=== PATIENT | male | born 1995 ===

== ENCOUNTER 2017-07-06 20:20 | Emergency (ER) | payer OTHER ==
[~2017-07-06] VITALS: Ht 182.9 cm; Wt 74.7 kg
[2017-07-06 20:38] VITALS: TEMP 36.8; Ht 182.9 cm; Wt 74.7 kg
[2017-07-06] MEDS ORDERED: IBUPROFEN 800 MG TAB PO STA (20:56)
[2017-07-06] MEDS ORDERED: CHOL2000 PO (21:19)
[2017-07-06] MEDS ORDERED: ZINC1TAB PO (21:19)
--- NOTE | 2017-07-06 22:01 | DIAGNOSTIC IMAGING REPORT ---
LUMBAR SPINE 5 VIEWS CLINICAL HISTORY: Low back pain. Soccer injury. FINDINGS: 5 views of the lumbar spine are obtained. No prior studies are available for comparison at the time of dictation. The skeletal structures are well mineralized. There is no radiographic evidence of fracture or malalignment. Vertebral body height and alignment are maintained. The transverse and spinous processes are intact. There is no evidence of spondylolysis. The intervertebral disc spaces are well-maintained. The visualized bony pelvis appears intact. There is a nonobstructed abdominal bowel gas pattern. IMPRESSION: Unremarkable radiographic evaluation of the lumbosacral spine. Electronically signed by: Esteban Rebollar M.D. 07/06/2017 9:59 PM Dictated Date/Time: 07/06/2017 9:58 PM
[2017-07-06] MEDS ORDERED: FLEXERIL HOME PACK 10 MG VIAL PO ONE (22:15)
[2017-07-06] MEDS ORDERED: CYCL10TA6 PO (22:17)
[2017-07-06 22:30] VITALS: BP 122/67; PULSE 78; O2SAT 99
--- NOTE | 2017-07-07 01:05 | EMERGENCY ROOM VISIT NOTE ---
History First contact with patient: 20:50 Chief Complaint: BACK PAIN Stated Complaint: BACK PAIN,FAINTNESS History of Present Illness The patient is a 22 year old male who presents to the Emergency Room with complaints of intermittent but persistent lower back pain after being injured while playing soccer 2 days ago. The patient reports that he was going for a block and fell onto his left side. Another teammate then fell on top of him. The patient reports feeling a pop in his lower back. He reports pain radiating into both buttocks and into the posterior thighs. He denies any pain radiating below the knees. He denies any bladder or bowel incontinence, saddle anesthesias or lower extremity weakness. The patient reports that his pain is worsened when sitting for long periods of time and heavy lifting. He denies any prior history of back injuries, and currently rates his discomfort a 9 out of 10. He has not taken any medicines for his pain. Review of Systems 10 system review was performed and was negative except for pertinent positives and negatives as indicated in history of present illness Past Medical/Surgical History Medical Problems: (1) No significant past medical history Surgical Problems: (1) No history of previous surgery Family History Unremarkable Social History Smoking Status: Never Smoker Alcohol Use: occasionally Marital Status: single Occupation Status: [employer] Current/Historical Medications Scheduled Cholecalciferol (Vitamin D3), 1 CAP PO DAILY Zinc Gluconate (Zinc), 1 TAB PO DAILY Scheduled PRN Cyclobenzaprine Hcl (Flexeril), 10 MG PO TID PRN for spasm Physical Exam Vital Signs Date Time Temp Pulse Resp B/P (MAP) Pulse Ox O2 Delivery O2 Flow Rate FiO2 07/06/17 22:30 78 122/67 99 07/06/17 20:38 36.8 97 18 136/66 97 Room Air Physical Exam CONSTITUTIONAL: Healthy and well nourished. Alert and oriented X 3 with positive affect. Patient appears in mild discomfort, and is laying supine on his back with his legs/hips flexed. HEENT: Normocephalic, atraumatic. Pupils equal, round and reactive. NECK: Full active range of motion without discomfort. RESPIRATORY: Clear to auscultation bilaterally with no wheezing, crackles, rhonchi or stridor. CARDIOVASCULAR: Regular rate and rhythm with no murmurs, rubs or gallops. GASTROINTESTINAL: Bowel sounds present in all quadrants. Soft and nontender to palpation. MUSCULOSKELETAL: Examination shows mild tenderness to palpation of bilateral lumbar paraspinous muscles and SI joints. Negative logroll. Negative straight leg raise bilaterally. Ankle plantar/dorsiflexion strength is 5 out of 5 and symmetric bilaterally. Pedal pulses are intact. INTEGUMENTARY: No rash or other significant dermatologic conditions noted. NEUROLOGIC: No focal neurologic deficits noted. Lower extremities are sensory intact with deep tendon reflexes 2+ and symmetric bilaterally. Medical Decision & Procedures ER Provider Diagnostic Interpretation: My interpretation of lumbar spine x-rays does not show any acute fractures. Radiologist report is as follows: LUMBAR SPINE 5 VIEWS CLINICAL HISTORY: Low back pain. Soccer injury. FINDINGS: 5 views of the lumbar spine are obtained. No prior studies are available for comparison at the time of dictation. The skeletal structures are well mineralized. There is no radiographic evidence of fracture or malalignment. Vertebral body height and alignment are maintained. The transverse and spinous processes are intact. There is no evidence of spondylolysis. The intervertebral disc spaces are well-maintained. The visualized bony pelvis appears intact. There is a nonobstructed abdominal bowel gas pattern. IMPRESSION: Unremarkable radiographic evaluation of the lumbosacral spine. Medications Administered Medications (Trade) Dose Ordered Sig/Margaret Route Start Time Stop Time Status Last Admin Dose Admin Ibuprofen (Motrin Tab) 800 mg NOW STAT PO 07/06/17 20:56 07/06/17 20:57 DC 07/06/17 22:14 800 MG Cyclobenzaprine HCl (FLEXERIL 10MG Home Pack) 1 homepack UD ONCE PO 07/06/17 22:15 07/06/17 22:16 DC 07/06/17 22:26 1 HOMEPACK ED Course Patient history and physical exam were performed. Nurse's notes were reviewed. Vital signs were reviewed and were normal. The patient was administered ibuprofen at his request for pain. X-rays of the lumbar spine were normal. The patient was encouraged to avoid sitting for long periods of time, or heavy lifting. He was encouraged to alternate ibuprofen and Tylenol as needed for pain. The patient was provided a prescription for Flexeril or symptoms. He was warned about sedation while taking Flexeril. The patient was instructed to follow-up with his PCP or [facility] as needed for any persistent symptoms. The patient was happy with plan of care, voiced understanding of all discharge instructions, and rated his discomfort a 5 out of 10 at the conclusion of my exam. Medical Decision Blood Pressure Screening Patient's blood pressure: Normal blood pressure Impression Primary Impression: Acute lumbar myofascial strain Departure Information Dispostion Home / Self-Care Condition GOOD Prescriptions Cyclobenzaprine Hcl (FLEXERIL) 10 Mg Tab 10 MG PO TID Y for spasm, #15 TAB Prov: Modesto Tang PA 07/06/17 Forms HOME CARE DOCUMENTATION FORM, IMPORTANT VISIT INFORMATION Patient Instructions My [facility] Additional Instructions Intermittently apply heat to back. Avoid heavy lifting or sitting for long periods of time. Ibuprofen 800 mg and/or Tylenol 1000 mg every 8 hours. You may also alternate these medications for more effective pain relief: Ibuprofen --4 HRS--> Tylenol --4 HRS--> ibuprofen --4 HRS--> Tylenol .... Flexeril as needed for worse pain/spasm. Do not drink alcohol or drive while taking Flexeril. Follow-up with [facility] as needed for further management. Problem Qualifiers Primary Impression: Acute lumbar myofascial strain Encounter type: initial encounter Qualified Codes: S39.012A - Strain of muscle, fascia and tendon of lower back, initial encounter
== END 2017-07-06 22:31 | disposition home or self-care (01) ==
LOC: C.EDB 20:21 → C.EDD 22:31
DX: S39.012A Strain of muscle, fascia and tendon of lower back, initial encounter (principal); X58.XXXA Exposure to other specified factors, initial encounter